=== PATIENT | male | born 1960 | race Caucasian/White ===

== ENCOUNTER 2017-06-08 16:41 | Inpatient (IN) | payer OTHER ==
[2017-06-08] MEDS: AMIODARONE 900 MG in IV DEXTROSE 5% 500 ML IV (16:00)
[2017-06-08] MEDS: DIGOXIN IV 500 MCG/2 ML AMPUL. IV ×2 (17:35)
[2017-06-08] MEDS: METOPROLOL TART IMMED RELEASE 50 MG TABLET. PO ×2 (19:47)
[2017-06-08] MEDS: traZODone 50 MG TABLET. PO ×2 (20:45)
[2017-06-08] MEDS: APIXABAN 5 MG TABLET. PO ×2 (20:45)
[2017-06-09] MEDS ORDERED: LIDOCAINE 2% VISCOUS 15 ML SOLUTION. ×2 (11:10)
[2017-06-09] MEDS ORDERED: LIDOCAINE 2% TOPICAL JELLY 5GM TUBE. TP ×2 (11:10)
[2017-06-09] MEDS ORDERED: BENZOCAINE ONE 20% MUCOSAL SPRAY. ×2 (11:10)
[2017-06-09] MEDS: LIDOCAINE 2% TOPICAL JELLY 5GM TUBE. TP ×2 (12:40)
[2017-06-09] MEDS: LIDOCAINE 2% VISCOUS 15 ML SOLUTION. SWSW ×2 (12:40)
[2017-06-09] MEDS: BENZOCAINE ONE 20% MUCOSAL SPRAY. MM ×2 (12:40)
[2017-06-09] MEDS ORDERED: PROPOFOL 20 ML IV ×2 (12:40)
[2017-06-09] MEDS ORDERED: METOPROLOL TARTRATE 5 MG/5 ML VIAL. ×2 (12:56)
[2017-06-09] MEDS: METOPROLOL TARTRATE 5 MG/5 ML VIAL. IVP ×2 (13:05)
[2017-06-09] MEDS: APIXABAN 5 MG TABLET. PO ×4 (14:27→21:17)
[2017-06-09] MEDS: AMIODARONE HCL 200 MG TABLET. PO ×2 (18:42)
[2017-06-09] MEDS ORDERED: AMIODARONE HCL 200 MG TABLET. PO ×2 (21:00)
[2017-06-09] MEDS: ZOLPIDEM 5 MG TABLET. PO ×2 (21:17)
[2017-06-10] MEDS: METOPROLOL SUCC 24HR ER 25 MG TAB.ER.24H. PO ×4 (07:58→14:11)
[2017-06-10] MEDS: APIXABAN 5 MG TABLET. PO ×4 (07:58→20:45)
[2017-06-10] MEDS: AMIODARONE HCL 200 MG TABLET. PO ×4 (07:59→20:45)
[2017-06-10] MEDS: oxyCODONE/APAP 5/325 1 TAB TABLET PO ×2 (13:14)
[2017-06-10] MEDS: METOPROLOL TARTRATE 5 MG/5 ML VIAL. IVP ×2 (13:15)
[2017-06-10 13:40] LABS: ANION GAP 7 (6-14); BLOOD UREA NITROGEN 10 mg/dL (8-26); CALCIUM 8.7 mg/dL (8.5-10.1); CARBON DIOXIDE 30 mmol/L (21-32); CHLORIDE 105 mmol/L (98-107); CREATININE 1.4 mg/dL (0.7-1.3); GFR 52.2; GLUCOSE 123 mg/dL (70-99); MAGNESIUM 2.1 mg/dL (1.8-2.4); POTASSIUM 3.6 mmol/L (3.5-5.1); SODIUM 142 mmol/L (136-145)
[2017-06-10] MEDS: DIGOXIN IV 500 MCG/2 ML AMPUL. IV ×2 (14:10)
[2017-06-10] MEDS: ACETAMINOPHEN 325 MG TABLET. PO ×2 (16:25)
[2017-06-10] MEDS: ZOLPIDEM 5 MG TABLET. PO ×2 (20:45)
[2017-06-11 06:50] LABS: HEMATOCRIT 45.9 % (39.0-53.0); HEMOGLOBIN 14.6 g/dL (13.0-17.5); MEAN CORPUSCULAR HEMOGLOBIN 30 pg (25-35); MEAN CORPUSCULAR HGB CONC 32 g/dL (31-37); MEAN CORPUSCULAR VOLUME 94 fL (79-100); PLATELET COUNT 283 x10^3/uL (140-400); RED BLOOD COUNT 4.86 x10^6/uL (4.30-5.70); RED CELL DISTRIBUTION WIDTH 14.5 % (11.5-14.5); WHITE BLOOD COUNT 7.7 x10^3/uL (4.0-11.0)
[2017-06-11 07:20] LABS: ALBUMIN/GLOBULIN RATIO 1.1 (1.0-1.7); ALK PHOS 47 U/L (46-116); ALT (SGPT) 25 U/L (16-63); ANION GAP 7 (6-14); AST (SGOT) 18 U/L (15-37); BLOOD UREA NITROGEN 11 mg/dL (8-26); BUN/CREATININE RATIO 9 (6-20); CALCIUM 8.1 mg/dL (8.5-10.1); CARBON DIOXIDE 28 mmol/L (21-32); CHLORIDE 105 mmol/L (98-107); CREATININE 1.2 mg/dL (0.7-1.3); GFR 62.4; GLUCOSE 88 mg/dL (70-99); SODIUM 140 mmol/L (136-145); TOTAL BILIRUBIN 0.7 mg/dL (0.2-1.0); TOTAL PROTEIN 5.8 g/dL (6.4-8.2)
[2017-06-11 07:39] LABS: THYROID STIM HORMONE (TSH) 2.926 uIU/mL (0.358-3.74)
[2017-06-11] MEDS: METOPROLOL SUCC 24HR ER 50 MG TAB.ER.24H. PO ×2 (09:41)
[2017-06-11] MEDS: AMIODARONE HCL 200 MG TABLET. PO ×2 (09:41)
[2017-06-11] MEDS: APIXABAN 5 MG TABLET. PO ×2 (09:41)
== END 2017-06-11 14:46 | disposition home or self-care (01) | DRG 308 ==
LOC: 2 SOUTH 16:41
DX: I48.91 Unspecified atrial fibrillation (principal); I50.23 Acute on chronic systolic (congestive) heart failure; I11.0 Hypertensive heart disease with heart failure; Z79.01 Long term (current) use of anticoagulants; Z90.49 Acquired absence of other specified parts of digestive tract
CPT/HCPCS: 36415; 76376; 80048; 80053; 83735; 84443; 85027; 92960; 93005; 93312; 93320; 93325; J0282; J1160; J2704; J3490